=== PATIENT | male | born 1955 | race Caucasian/White ===

== ENCOUNTER 2016-12-28 07:14 | Day surgery (SDC) | payer OTHER, BC ==
[2016-12-27 11:42] VITALS: BMI 31.1
[2016-12-28] MEDS ORDERED: ROPIVACAINE HCL 0.5% 30ML VIAL ONE (09:35)
[2016-12-28] MEDS ORDERED: DEXAMETHASONE SOD PHOSPHATE/PF 10 MG/ML SDV ONE (09:35)
[2016-12-28] MEDS ORDERED: MIDAZOLAM HCL 2 MG/2 ML SINGLE DOSE VIAL ONE (09:36)
[2016-12-28] MEDS ORDERED: PROPOFOL 20 ML ONE ×3 (10:11)
[2016-12-28] MEDS ORDERED: CLINDAMYCIN PHOSPHATE 600 MG/4 ML VIAL ONE (10:25)
[2016-12-28] MEDS ORDERED: ePHEDrine SULFATE 50 MG/1 ML AMPULE ONE (10:55)
[2016-12-28 15:07] VITALS: BP 135/79; PULSE 74; TEMP 98
--- NOTE | 2016-12-30 19:46 | OP ---
DATE OF OPERATION: 12/28/2016 LOCATION: [facility]. SURGEON: Ottoniel Albarado MD INSURANCE CUSTOMER SERVICE SPECIALIST: CAROLYN Baird PREOPERATIVE DIAGNOSES: 1. Left shoulder rotator cuff tear. 2. Left shoulder impingement syndrome. 3. Left shoulder acromioclavicular joint disease. 4. Left shoulder superior labral tear, anterior and posterior, with synovitis. POSTOPERATIVE DIAGNOSES: 1. Left shoulder rotator cuff tear. 2. Left shoulder impingement syndrome. 3. Left shoulder acromioclavicular joint disease. 4. Left shoulder superior labral tear, anterior and posterior, with synovitis. PROCEDURE: 1. Left shoulder arthroscopy with arthroscopic rotator cuff repair. 2. Left shoulder arthroscopy with subacromial decompression. 3. Left shoulder arthroscopy, with resection of distal clavicle, acromioclavicular joint. 4. Left shoulder arthroscopy with debridement, major. CPT CODES: 51459, 24182, 99423, 83468. FINDINGS: 1. Full-thickness rotator cuff tear, supraspinatus. 2. Partial biceps tear, greater than 70%. 3. Superior labral tear, anterior, posterior, with intact biceps anchor. 4. Posterior labral fraying. 5. Thickened scar tissue, subacromial space, most pronounced anteriorly. 6. Type 2 to 3 acromion, anterior and lateral. 7. Inferior spurs of clavicle with acromioclavicular degenerative joint disease. REPAIR TYPE: Biceps tendon was completely released and shaver was taken down to the superior labrum. This was released into the soft tissue. Two mattress sutures were placed into the supraspinatus and secured to a bleeding bone bed using the Opus technique. PROCEDURE: Informed consent was obtained. The patient was taken to the operating room where the upper extremity was prepped and draped in a sterile fashion. The shoulder was manipulated for a full range of motion. Posterior incision portal was made and directed to glenohumeral joint. Under direct visualization, an anterior incision and portal was made. Extensive synovitis, as well as chondral injuries throughout the glenohumeral joint were dbrided and removed. Any identified labral injuries, including superior labral tear, anterior and posterior, and anterior labrum torn portions were removed as well. Rotator cuff was visualized and noted to have full-thickness tear. The edges were debrided. Posterior incision portal was redirected to subacromial space where a lateral incision portal was made. Excessive and thickened scar tissue noted throughout the subacromial space, including bursal and scar tissue, were removed. The type 2 acromion was converted into a flattened type 1 using a mykel for subacromial decompression. Distal inferior spur at the distal clavicle was also dbrided with the use of accessory portal in the AC joint. The edges of the rotator cuff were identified. Sutures were placed into the rotator cuff and secured using anchors throughout the greater tuberosity. Prior to securing, a bleeding bed was made using a small mykel, creating a bleeding surface of the rotator cuff insertion. The shoulder was then drained. A single suture as placed on all portals and a sterile dressing was placed. The patient was transferred to the recovery room without complication. OTTONIEL ALBARADO M.D. [id number]
--- NOTE | 2017-01-01 13:59 | PATH ---
Surgical Pathology Report Patient Name: ALEJANDRINA JAMES [facility]. Rec. #: [id number] /Age/Gender: 1955 (Age: 61) / M Account: [id number] Location: [facility] AMBULATORY Taken: 12/28/2016 Received: 12/28/2016 Reported: 01/01/2017 Physicians: Ottoniel Medina M.D. Specimen(s) Received LEFT SHOULDER SHAVINGS Clinical History Left shoulder impingement Final Diagnosis LEFT SHOULDER, ARTHROSCOPIC SHAVING: PORTIONS OF SYNOVIUM, CARTILAGE, SKELETAL MUSCLE AND BONE CONSISTENT WITH ARTHROSCOPIC SHAVINGS. Electronically Signed Lawrence Parker M.D. Gross Description Received in formalin, labeled "left shoulder shaving," is a 3.5 x 3.0 x 0.4 cm. aggregate of garcia-yellow soft tissue fragments admixed with blood clot. A product support sales representative portion is submitted in one cassette. 12/31/201612/31/2016
== END 2016-12-28 13:40 | disposition home or self-care (01) ==
LOC: FASU 07:14 → EDSEX 07:30 → FASU 13:40
PROVIDERS: ATTEND Orthopaedic Surgery
PROC: 0RNK4ZZ Release Left Shoulder Joint, Percutaneous Endoscopic Approach (ICD-10-PCS; 2016-12-28)
PROC: 0PBB4ZZ Excision of Left Clavicle, Percutaneous Endoscopic Approach (ICD-10-PCS; 2016-12-28)
PROC: 0RBK4ZZ Excision of Left Shoulder Joint, Percutaneous Endoscopic Approach (ICD-10-PCS; 2016-12-28)
PROC: 0LB24ZZ Excision of Left Shoulder Tendon, Percutaneous Endoscopic Approach (ICD-10-PCS; principal; 2016-12-28 09:00)
DX: S43.422A Sprain of left rotator cuff capsule, initial encounter (principal); M75.42 Impingement syndrome of left shoulder; M19.012 Primary osteoarthritis, left shoulder; S43.432A Superior glenoid labrum lesion of left shoulder, initial encounter; X58.XXXA Exposure to other specified factors, initial encounter; Y93.9 Activity, unspecified; Y92.9 Unspecified place or not applicable; M65.812 Other synovitis and tenosynovitis, left shoulder
CPT/HCPCS: 88304-TC; 94760